=== PATIENT | female | born 1955 | race Caucasian/White ===

== ENCOUNTER 2016-05-18 20:29 | Emergency (ER) | payer OTHER ==
[~2016-05-18 20:29] MED LIST: /MOXI40TA OR; ACET65TA PO; ASPI81TA13 PO; ASPI81TA83 PO; BENA25TA4 PO; COUM10TA PO; COZA50TA PO; ECOT81TA2 PO; FLOM5CAP PO; GLUC1000 PO; GLUCTAB2 PO; HYDR25T PO; HYDR25TA8 PO; IBUP600T PO; KEFL500C PO; KEFL500C7 PO; LISI10TA4 PO; LOSA50TA20 PO; METF1000 PO; OMEP20CA3 PO; PRAV20TA2 PO; PRAV40TA PO; PRIL20CA PO; TAMS0.4C2 PO; TRENTAL PO; TYLE325T5 PO; TYLE650T30 PO; VITA500T53 PO
[2016-05-18] MEDS ORDERED: AZITHROMYCIN 250 MG TAB As Ordered ONE (22:24)
[2016-05-18] MEDS ORDERED: ALBUTEROL 90 MCG/ACT 8GM HFA INHALER As Ordered ONE (22:24)
[2016-05-18] MEDS ORDERED: predniSONE 20 MG TAB As Ordered ONE (22:24)
--- NOTE | 2016-05-18 22:31 | EDDOCDS ---
Nurse's Notes [facility] Name: Ciera Cody Age: 61 yrs Sex: Female : 1955 Arrival Date: 05/18/2016 Time: 20:29 Bed Triage 3 Private MD: Pretty Jain NP Diagnosis: Acute upper respiratory infections of multiple and unspecified sites;Acute bronchitis Presentation: 05/18 20:38 Presenting complaint: Patient states: Sick since Saturday--cough, runny nose, stuffy mcp nose, sore throat. Risk factors: Stridor is not present. Drooling is not present. Shortness of breath is not present. Cellulitis is not present. Adult Sepsis Screening: The patient does not have new or worsening altered mentation. Patient's respiratory rate is less than 22. Systolic blood pressure is greater than 100. Patient has a qSOFA score of 0- Negative Sepsis Screen. Suicide/Homicide risk assessment- the patient denies having any suicidal and/or homicidal ideations and does not present with any other emotional, behavioral or mental health complaints. Status: Patient is not a managed services sales consultant or dependent. Transition of care: patient was not received from another setting of care. 20:38 Acuity: GEOVANNA Level 3 [facility] 20:38 Method Of Arrival: Walkin/Carried/Asstd [facility] Triage Assessment: 20:42 General: Appears ill, Behavior is cooperative. Pain: Location: throat, back Pain mcp currently is 6 out of 10 on a pain scale. HIV screening NA for this visit Offered previously. Neurological: No deficits noted. EENT: Reports nasal congestion nasal discharge. Respiratory: Airway is patent Respiratory effort is even, unlabored, Reports cough that is persistent. Derm: Skin is pink, warm & dry. Historical: - Allergies: Naproxen; Ibuprofen; - Home Meds: 1. metformin 500 mg Oral tab 1 tab 2 times per day 2. magnesium oxide 500 mg Oral tab twice a day 3. aspirin 81 mg Oral tab 1 tab once daily 4. Calcium + Vitamin D 600 mg calcium- 200 unit Oral tab daily 5. losartan 50 mg oral tab 1 tab once daily 6. omeprazole 20 mg Oral cpDR 1 cap once daily 7. multivitamin Oral tab 1 tablet daily 8. Vitamin D Oral 50,000 unit every 2 weeks 9. atorvastatin 80 mg oral tab 1 tab once daily 10. cyclobenzaprine 5 mg Oral tab as needed - PMHx: Hypercholesterolemia; Hypertension; GERD; Diabetes - NIDDM: controlled; - PSHx: none; - Social history: Smoking status: Patient states was never smoker of tobacco. No barriers to communication noted, The patient speaks fluent Tajik. - Family history: Not pertinent. - : The pt / caregiver states he / she is not on anticoagulants. Home medication list is obtained from the patient. - Exposure Risk Screening:: None identified. Screenin:32 Infection Control. [facility] 22:29 Screening information is obtained from the patient. Fall risk: No risks identified. mcp Assistance ADL's: requires no assistance with activities of daily living. Abuse/DV Screen: The patient / caregiver reports he/she is: not in a situation that causes fear, pain or injury. Nutritional screening: No deficits noted. Advance Directives: There is no active DNR order. home support is adequate. Assessment: 22:29 General: Appears in no apparent distress, Behavior is cooperative. Pain: Location: head mcp and throat Pain currently is 6 out of 10 on a pain scale. Neurological: No deficits noted. Respiratory: Airway is patent Respiratory effort is even, unlabored, Reports cough that is non-productive, persistent. Derm: Skin is pink, warm & dry. 22:30 EENT: Throat is clear. [facility] Vital Signs: 20:31 BP 137 / 99; Pulse 99; Resp 18; Temp 98.0(O); Pulse Ox 100% ; Weight 101.15 kg; Height elp 5 ft. 2 in. (157.48 cm); Pain 5/10; 20:31 Body Mass Index 40.79 (101.15 kg, 157.48 cm) [facility] Vitals: 20:31 Log In Time: May 18, 2016 at 20:30. [facility] ED Course: 20:30 Patient visited by Halima Esparza PCA. elp 20:30 Pretty Jain is Private Physician. elp 20:30 Patient moved to Waiting elp 20:31 Patient visited by Halima Esparza PCA. elp 20:31 Patient moved to Pre RCE elp 20:39 Triage Initiated [facility] 20:43 Patient visited by Diane Levin RN. [facility] 21:47 Patient visited by Adriana Cohn PCA. jb 21:47 Patient moved to Triage 3 jb5 22:08 [facility] cc[facility] 22:08 Ravindra Frias DO is Attending Physician. cc10 22:08 Patient visited by Chip Holder PA-C. cc10 22:08 Patient visited by Chip Holder PA-C. cc10 22:15 Pretty Jain is Referral Physician. cc10 22:28 No IV's were initiated during this patient's visit. No procedures done that require mcp assistance. 22:29 The patient / caregiver is instructed regarding the plan of care and ED course. Patient mcp has correct armband on for positive identification. Bed in low position. Call light in reach. Administered Medications: 22:28 Drug: Ventolin 2 puffs [Ventolin HFA 90 mcg/actuation aerosol inhaler (2 puffs)] Route: mcp Inhalation; 22:28 Drug: predniSONE 20 mg [prednisone 20 mg tablet (1 tabs)] Route: PO; mcp 22:28 Drug: azithromycin 500 mg [azithromycin 250 mg tablet (2 tabs)] Route: PO; [facility] Order Results: There are currently no results for this order. Outcome: 22:15 Discharge ordered by Provider. cc10 22:30 Discharge Assessment: patient administered narcotics - no. The following High Risk mcp Discharge criteria are identified: None. Discharged to home ambulatory, with family. Condition: stable. Discharge instructions given to patient, Instructed on discharge instructions, follow up and referral plans. medication usage, Demonstrated understanding of instructions, medications, Pt was receptive of discharge instructions/ teaching. Prescriptions given X 3. No special radiology studies were completed. Property sent home with patient. 22:30 Patient left the ED. mcp Signatures: Diane Levin RN RN Adriana Casillas, WORT EXTRACTOR WORT EXTRACTOR jb5 Halima Esparza, WORT EXTRACTOR WORT EXTRACTOR elp Chip Hodler PA-C PA-C cc10 MTDD
--- NOTE | 2016-05-18 22:31 | EDDOCDS ---
Physician Documentation [facility] Name: Ciera Cody Age: 61 yrs Sex: Female : 1955 Arrival Date: 05/18/2016 Time: 20:29 Bed Triage 3 Private MD: Pretty Jain NP Disposition: 05/18/16 22:15 Discharged to Home/Self Care. Impression: Acute upper respiratory infections of multiple and unspecified sites, Acute bronchitis. - Condition is Stable. - Discharge Instructions: Acute Bronchitis, Upper Respiratory Infection, Adult. - Prescriptions for azithromycin 250 mg Oral tablet - take 1 tablet by ORAL route once daily for 4 days; 4 tablet. Prednisone 20 mg Oral Tablet - take 1 tablet by ORAL route once daily for 3 days; 3 tablet. benzonatate 200 mg Oral Capsule - take 1 capsule by ORAL route 3 times per day As needed; 30 capsule. - Medication Reconciliation, Local Pharmacy Hours form. - Follow up: Emergency Department; When: As needed. Follow up: Pretty Jain; When: Call to arrange an appointment; Reason: Wound/Symptom Recheck, Recheck today's complaints, Worsening of conditions, Continuance of care. - Problem is an ongoing problem. - Symptoms are unchanged. Historical: - Allergies: Naproxen; Ibuprofen; - Home Meds: 1. metformin 500 mg Oral tab 1 tab 2 times per day 2. magnesium oxide 500 mg Oral tab twice a day 3. aspirin 81 mg Oral tab 1 tab once daily 4. Calcium + Vitamin D 600 mg calcium- 200 unit Oral tab daily 5. losartan 50 mg oral tab 1 tab once daily 6. omeprazole 20 mg Oral cpDR 1 cap once daily 7. multivitamin Oral tab 1 tablet daily 8. Vitamin D Oral 50,000 unit every 2 weeks 9. atorvastatin 80 mg oral tab 1 tab once daily 10. cyclobenzaprine 5 mg Oral tab as needed - PMHx: Hypercholesterolemia; Hypertension; GERD; Diabetes - NIDDM: controlled; - PSHx: none; - Social history: Smoking status: Patient states was never smoker of tobacco. No barriers to communication noted, The patient speaks fluent Kittitian. - Family history: Not pertinent. - : The pt / caregiver states he / she is not on anticoagulants. Home medication list is obtained from the patient. - Exposure Risk Screening:: None identified. Vital Signs: 05/18 20:31 BP 137 / 99; Pulse 99; Resp 18; Temp 98.0(O); Pulse Ox 100% ; Weight 101.15 kg / 223 elp lbs; Height 5 ft. 2 in. (157.48 cm); Pain 5/10; 20:31 Body Mass Index 40.79 (101.15 kg, 157.48 cm) elp MDM: 22:14 MDI teaching with Spacer ordered. cc10 22:14 Ventolin Inhaler 2 puffs Inhalation once ordered. cc10 22:14 predniSONE 20 mg PO once; administer with food or milk ordered. cc10 22:14 azithromycin 500 mg PO once ordered. cc10 22:28 predniSONE 20 mg PO once; administer with food or milk ordered. mcp Administered Medications: 22:28 Drug: Ventolin 2 puffs [Ventolin HFA 90 mcg/actuation aerosol inhaler (2 puffs)] Route: mcp Inhalation; 22:28 Drug: predniSONE 20 mg [prednisone 20 mg tablet (1 tabs)] Route: PO; mcp 22:28 Drug: azithromycin 500 mg [azithromycin 250 mg tablet (2 tabs)] Route: PO; [facility] Signatures: Diane Levin, RN RN mcp Chip Holder PA-C PAGlenda cc10 MTDD
--- NOTE | 2016-05-22 10:04 | EDDOCDS ---
Physician Documentation [facility] Name: Ciera Cody Age: 61 yrs Sex: Female : 1955 Arrival Date: 05/18/2016 Time: 20:29 Bed Triage 3 Private MD: Pretty Jain NP Disposition: 05/18/16 22:15 Discharged to Home/Self Care. Impression: Acute upper respiratory infections of multiple and unspecified sites, Acute bronchitis. - Condition is Stable. - Discharge Instructions: Acute Bronchitis, Upper Respiratory Infection, Adult. - Prescriptions for azithromycin 250 mg Oral tablet - take 1 tablet by ORAL route once daily for 4 days; 4 tablet. Prednisone 20 mg Oral Tablet - take 1 tablet by ORAL route once daily for 3 days; 3 tablet. benzonatate 200 mg Oral Capsule - take 1 capsule by ORAL route 3 times per day As needed; 30 capsule. - Medication Reconciliation, Local Pharmacy Hours form. - Follow up: Emergency Department; When: As needed. Follow up: Pretty Jain; When: Call to arrange an appointment; Reason: Wound/Symptom Recheck, Recheck today's complaints, Worsening of conditions, Continuance of care. - Problem is an ongoing problem. - Symptoms are unchanged. Historical: - Allergies: Naproxen; Ibuprofen; - Home Meds: 1. metformin 500 mg Oral tab 1 tab 2 times per day 2. magnesium oxide 500 mg Oral tab twice a day 3. aspirin 81 mg Oral tab 1 tab once daily 4. Calcium + Vitamin D 600 mg calcium- 200 unit Oral tab daily 5. losartan 50 mg oral tab 1 tab once daily 6. omeprazole 20 mg Oral cpDR 1 cap once daily 7. multivitamin Oral tab 1 tablet daily 8. Vitamin D Oral 50,000 unit every 2 weeks 9. atorvastatin 80 mg oral tab 1 tab once daily 10. cyclobenzaprine 5 mg Oral tab as needed - PMHx: Hypercholesterolemia; Hypertension; GERD; Diabetes - NIDDM: controlled; - PSHx: none; - Social history: Smoking status: Patient states was never smoker of tobacco. No barriers to communication noted, The patient speaks fluent Luxembourger. - Family history: Not pertinent. - : The pt / caregiver states he / she is not on anticoagulants. Home medication list is obtained from the patient. - Exposure Risk Screening:: None identified. Vital Signs: 05/18 20:31 BP 137 / 99; Pulse 99; Resp 18; Temp 98.0(O); Pulse Ox 100% ; Weight 101.15 kg / 223 elp lbs; Height 5 ft. 2 in. (157.48 cm); Pain 5/10; 20:31 Body Mass Index 40.79 (101.15 kg, 157.48 cm) elp MDM: 22:14 MDI teaching with Spacer ordered. cc10 22:14 Ventolin Inhaler 2 puffs Inhalation once ordered. cc10 22:14 predniSONE 20 mg PO once; administer with food or milk ordered. cc10 22:14 azithromycin 500 mg PO once ordered. cc10 22:28 predniSONE 20 mg PO once; administer with food or milk ordered. [facility] :38 [facility] Payment Agreement was scanned into [employer] and attached to record. [facility] : Financial registration complete. 5 05/19 08:15 T-Sheet-- Draft Copy was scanned into [employer] and attached to record. se Administered Medications: 05/18 22:28 Drug: Ventolin 2 puffs [Ventolin HFA 90 mcg/actuation aerosol inhaler (2 puffs)] Route: mcp Inhalation; 22:28 Drug: predniSONE 20 mg [prednisone 20 mg tablet (1 tabs)] Route: PO; [facility] 22:28 Drug: azithromycin 500 mg [azithromycin 250 mg tablet (2 tabs)] Route: PO; [facility] Signatures: Diane Levin, RN RN [facility] Chip Holder, ARABELLAC PABina Galvan Alida Frey The chart was reviewed and I authenticate all verbal orders and agree with the evaluation and treatment provided.Attachments: :38 [facility] Payment Agreement jp5 05/19 08:15 T-Sheet-- Draft Copy [facility] Chart Complete MTDD
--- NOTE | 2016-05-22 10:04 | EDDOCDS ---
Physician Documentation [facility] Name: Ciera Cody Age: 61 yrs Sex: Female : 1955 Arrival Date: 05/18/2016 Time: 20:29 Bed Triage 3 Private MD: Pretty Jain NP Disposition: 05/18/16 22:15 Discharged to Home/Self Care. Impression: Acute upper respiratory infections of multiple and unspecified sites, Acute bronchitis. - Condition is Stable. - Discharge Instructions: Acute Bronchitis, Upper Respiratory Infection, Adult. - Prescriptions for azithromycin 250 mg Oral tablet - take 1 tablet by ORAL route once daily for 4 days; 4 tablet. Prednisone 20 mg Oral Tablet - take 1 tablet by ORAL route once daily for 3 days; 3 tablet. benzonatate 200 mg Oral Capsule - take 1 capsule by ORAL route 3 times per day As needed; 30 capsule. - Medication Reconciliation, Local Pharmacy Hours form. - Follow up: Emergency Department; When: As needed. Follow up: Pretty Jain; When: Call to arrange an appointment; Reason: Wound/Symptom Recheck, Recheck today's complaints, Worsening of conditions, Continuance of care. - Problem is an ongoing problem. - Symptoms are unchanged. Historical: - Allergies: Naproxen; Ibuprofen; - Home Meds: 1. metformin 500 mg Oral tab 1 tab 2 times per day 2. magnesium oxide 500 mg Oral tab twice a day 3. aspirin 81 mg Oral tab 1 tab once daily 4. Calcium + Vitamin D 600 mg calcium- 200 unit Oral tab daily 5. losartan 50 mg oral tab 1 tab once daily 6. omeprazole 20 mg Oral cpDR 1 cap once daily 7. multivitamin Oral tab 1 tablet daily 8. Vitamin D Oral 50,000 unit every 2 weeks 9. atorvastatin 80 mg oral tab 1 tab once daily 10. cyclobenzaprine 5 mg Oral tab as needed - PMHx: Hypercholesterolemia; Hypertension; GERD; Diabetes - NIDDM: controlled; - PSHx: none; - Social history: Smoking status: Patient states was never smoker of tobacco. No barriers to communication noted, The patient speaks fluent Stateless. - Family history: Not pertinent. - : The pt / caregiver states he / she is not on anticoagulants. Home medication list is obtained from the patient. - Exposure Risk Screening:: None identified. Vital Signs: 05/18 20:31 BP 137 / 99; Pulse 99; Resp 18; Temp 98.0(O); Pulse Ox 100% ; Weight 101.15 kg / 223 elp lbs; Height 5 ft. 2 in. (157.48 cm); Pain 5/10; 20:31 Body Mass Index 40.79 (101.15 kg, 157.48 cm) elp MDM: 22:14 MDI teaching with Spacer ordered. cc10 22:14 Ventolin Inhaler 2 puffs Inhalation once ordered. cc10 22:14 predniSONE 20 mg PO once; administer with food or milk ordered. cc10 22:14 azithromycin 500 mg PO once ordered. cc10 22:28 predniSONE 20 mg PO once; administer with food or milk ordered. [facility] :38 [facility] Payment Agreement was scanned into [employer] and attached to record. [facility] : Financial registration complete. 5 05/19 08:15 T-Sheet-- Draft Copy was scanned into [employer] and attached to record. se Administered Medications: 05/18 22:28 Drug: Ventolin 2 puffs [Ventolin HFA 90 mcg/actuation aerosol inhaler (2 puffs)] Route: mcp Inhalation; 22:28 Drug: predniSONE 20 mg [prednisone 20 mg tablet (1 tabs)] Route: PO; [facility] 22:28 Drug: azithromycin 500 mg [azithromycin 250 mg tablet (2 tabs)] Route: PO; [facility] Signatures: Diane Levin, RN RN [facility] Chip Holder, ARABELLAC PABina Galvan Alida Frey The chart was reviewed and I authenticate all verbal orders and agree with the evaluation and treatment provided.Attachments: :38 [facility] Payment Agreement jp5 05/19 08:15 T-Sheet-- Draft Copy [facility] Chart Complete MTDD
--- NOTE | 2016-05-22 10:04 | EDDOCDS ---
Nurse's Notes [facility] Name: Ciera Cody Age: 61 yrs Sex: Female : 1955 Arrival Date: 05/18/2016 Time: 20:29 Bed Triage 3 Private MD: Pretty Jain NP Diagnosis: Acute upper respiratory infections of multiple and unspecified sites;Acute bronchitis Presentation: 05/18 20:38 Presenting complaint: Patient states: Sick since Saturday--cough, runny nose, stuffy mcp nose, sore throat. Risk factors: Stridor is not present. Drooling is not present. Shortness of breath is not present. Cellulitis is not present. Adult Sepsis Screening: The patient does not have new or worsening altered mentation. Patient's respiratory rate is less than 22. Systolic blood pressure is greater than 100. Patient has a qSOFA score of 0- Negative Sepsis Screen. Suicide/Homicide risk assessment- the patient denies having any suicidal and/or homicidal ideations and does not present with any other emotional, behavioral or mental health complaints. Status: Patient is not a real estate services administrator or dependent. Transition of care: patient was not received from another setting of care. 20:38 Acuity: GEOVANNA Level 3 [facility] 20:38 Method Of Arrival: Walkin/Carried/Asstd [facility] Triage Assessment: 20:42 General: Appears ill, Behavior is cooperative. Pain: Location: throat, back Pain mcp currently is 6 out of 10 on a pain scale. HIV screening NA for this visit Offered previously. Neurological: No deficits noted. EENT: Reports nasal congestion nasal discharge. Respiratory: Airway is patent Respiratory effort is even, unlabored, Reports cough that is persistent. Derm: Skin is pink, warm & dry. Historical: - Allergies: Naproxen; Ibuprofen; - Home Meds: 1. metformin 500 mg Oral tab 1 tab 2 times per day 2. magnesium oxide 500 mg Oral tab twice a day 3. aspirin 81 mg Oral tab 1 tab once daily 4. Calcium + Vitamin D 600 mg calcium- 200 unit Oral tab daily 5. losartan 50 mg oral tab 1 tab once daily 6. omeprazole 20 mg Oral cpDR 1 cap once daily 7. multivitamin Oral tab 1 tablet daily 8. Vitamin D Oral 50,000 unit every 2 weeks 9. atorvastatin 80 mg oral tab 1 tab once daily 10. cyclobenzaprine 5 mg Oral tab as needed - PMHx: Hypercholesterolemia; Hypertension; GERD; Diabetes - NIDDM: controlled; - PSHx: none; - Social history: Smoking status: Patient states was never smoker of tobacco. No barriers to communication noted, The patient speaks fluent Arabic. - Family history: Not pertinent. - : The pt / caregiver states he / she is not on anticoagulants. Home medication list is obtained from the patient. - Exposure Risk Screening:: None identified. Screenin:32 Infection Control. [facility] 22:29 Screening information is obtained from the patient. Fall risk: No risks identified. mcp Assistance ADL's: requires no assistance with activities of daily living. Abuse/DV Screen: The patient / caregiver reports he/she is: not in a situation that causes fear, pain or injury. Nutritional screening: No deficits noted. Advance Directives: There is no active DNR order. home support is adequate. Assessment: 22:29 General: Appears in no apparent distress, Behavior is cooperative. Pain: Location: head mcp and throat Pain currently is 6 out of 10 on a pain scale. Neurological: No deficits noted. Respiratory: Airway is patent Respiratory effort is even, unlabored, Reports cough that is non-productive, persistent. Derm: Skin is pink, warm & dry. 22:30 EENT: Throat is clear. [facility] Vital Signs: 20:31 BP 137 / 99; Pulse 99; Resp 18; Temp 98.0(O); Pulse Ox 100% ; Weight 101.15 kg; Height elp 5 ft. 2 in. (157.48 cm); Pain 5/10; 20:31 Body Mass Index 40.79 (101.15 kg, 157.48 cm) [facility] Vitals: 20:31 Log In Time: May 18, 2016 at 20:30. [facility] ED Course: 20:30 Patient visited by Halima Esparza PCA. elp 20:30 Pretty Jain is Private Physician. elp 20:30 Patient moved to Waiting elp 20:31 Patient visited by Halima Esparza PCA. elp 20:31 Patient moved to Pre RCE elp 20:39 Triage Initiated [facility] 20:43 Patient visited by Diane Levin RN. [facility] 21:47 Patient visited by Adriana Cohn PCA. jb 21:47 Patient moved to Triage 3 jb5 22:08 [facility] cc[facility] 22:08 Ravindra Frias DO is Attending Physician. cc10 22:08 Patient visited by Chip Holder PA-C. cc10 22:08 Patient visited by Chip Holder PA-C. cc10 22:15 Pretty Jain is Referral Physician. cc10 22:28 No IV's were initiated during this patient's visit. No procedures done that require mcp assistance. 22:29 The patient / caregiver is instructed regarding the plan of care and ED course. Patient mcp has correct armband on for positive identification. Bed in low position. Call light in reach. 22:38 [facility] Payment Agreement was scanned into [employer] and attached to record. jp5 05/19 08:15 T-Sheet-- Draft Copy was scanned into [employer] and attached to record. se Administered Medications: 05/18 22:28 Drug: Ventolin 2 puffs [Ventolin HFA 90 mcg/actuation aerosol inhaler (2 puffs)] Route: mcp Inhalation; 22:28 Drug: predniSONE 20 mg [prednisone 20 mg tablet (1 tabs)] Route: PO; mcp 22:28 Drug: azithromycin 500 mg [azithromycin 250 mg tablet (2 tabs)] Route: PO; [facility] Order Results: There are currently no results for this order. Outcome: 22:15 Discharge ordered by Provider. cc10 22:30 Discharge Assessment: patient administered narcotics - no. The following High Risk [facility] Discharge criteria are identified: None. Discharged to home ambulatory, with family. Condition: stable. Discharge instructions given to patient, Instructed on discharge instructions, follow up and referral plans. medication usage, Demonstrated understanding of instructions, medications, Pt was receptive of discharge instructions/ teaching. Prescriptions given X 3. No special radiology studies were completed. Property sent home with patient. 22:30 Patient left the ED. [facility] Signatures: Diane Levin RN RN Adriana Casillas, PETROLEUM ENGINEER PETROLEUM ENGINEER jb5 Halima Esparza, PETROLEUM ENGINEER PETROLEUM ENGINEER elp Chip Holder PA-C PA-C cc10 Bina Ward jp5 Alida Mehta se Chart Complete MTDD
== END 2016-05-18 22:30 | disposition home or self-care (01) ==
LOC: M ED 20:29
DX: J20.9 Acute bronchitis, unspecified (principal); J06.9 Acute upper respiratory infection, unspecified; E78.00 Pure hypercholesterolemia, unspecified; I10 Essential (primary) hypertension; K21.9 Gastro-esophageal reflux disease without esophagitis; E11.9 Type 2 diabetes mellitus without complications; Z79.82 Long term (current) use of aspirin; Z79.84 Long term (current) use of oral hypoglycemic drugs; Z79.899 Other long term (current) drug therapy; Z88.6 Allergy status to analgesic agent

== ENCOUNTER 2016-06-02 22:10 | Emergency (ER) | payer OTHER ==
[~2016-06-02 22:10] MED LIST changes: -ECOT81TA2 PO; +ECOT81TA5 PO; +PRIL20CA9 PO
[2016-06-03] MEDS ORDERED: BENZONATATE 100 MG CAP As Ordered ONE (00:33)
--- NOTE | 2016-06-03 01:20 | EDDOCDS ---
Nurse's Notes [facility] Name: Ciera Cody Age: 61 yrs Sex: Female : 1955 Arrival Date: 06/02/2016 Time: 22:10 Bed TR6 Private MD: Pretty Jain NP Diagnosis: Acute bronchitis;Cough Presentation: 06/02 22:26 Presenting complaint: Patient states: Was seen here 2 weeks ago and was diagnosed with kmg1 URI and acute bronchitis. Still feels fullness in in chest and cough persists. Adult Sepsis Screening: The patient does not have new or worsening altered mentation. Patient's respiratory rate is less than 22. Systolic blood pressure is greater than 100. Patient has a qSOFA score of 0- Negative Sepsis Screen. Suicide/Homicide risk assessment- the patient denies having any suicidal and/or homicidal ideations and does not present with any other emotional, behavioral or mental health complaints. 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 Transition of care: patient was not received from another setting of care. 22:26 Acuity: GEOVANNA Level 4 km 22:26 Method Of Arrival: Walkin/Carried/Asstd km Triage Assessment: 22:31 General: Appears in no apparent distress, comfortable, Behavior is appropriate for age, kmg1 cooperative, pleasant. Pain: Denies pain. HIV screening NA for this visit Offered previously. Respiratory: Airway is patent Respiratory effort is even, unlabored, Respiratory pattern is regular, symmetrical, Reports shortness of breath cough that is. Historical: - Allergies: Ibuprofen; Naproxen; - Home Meds: 1. aspirin 81 mg Oral tab 1 tab once daily 2. atorvastatin 80 mg oral tab 1 tab once daily 3. Calcium + Vitamin D 600 mg calcium- 200 unit Oral tab daily 4. cyclobenzaprine 5 mg Oral tab as needed 5. losartan 50 mg oral tab 1 tab once daily 6. magnesium oxide 500 mg Oral tab twice a day 7. metformin 500 mg Oral tab 1 tab 2 times per day 8. multivitamin Oral tab 1 tab daily 9. omeprazole 20 mg Oral cpDR 1 cap once daily 10. Vitamin D Oral 88313 unit every 2 weeks 11. Tussionex Pennkinetic ER oral su12 12. TussiCaps 10-8 mg oral cp12 1 cap every 12 hours 13. albuterol sulfate 90 mcg/actuation Inhl HFAA 2 puffs every 4-6 hours - PMHx: Diabetes - NIDDM: controlled; GERD; Hypercholesterolemia; Hypertension; - PSHx: none; - Social history: Smoking status: Patient states was never smoker of tobacco. No barriers to communication noted, The patient speaks fluent Spanish, Speaks appropriately for age. - Family history: Not pertinent. - : The pt / caregiver states he / she is not on anticoagulants. Home medication list is obtained from the patient. - Exposure Risk Screening:: None identified. Screenin/22 01:18 Screening information is obtained from the patient. Fall risk: No risks identified. cz Assistance ADL's: requires no assistance with activities of daily living. Abuse/DV Screen: The patient / caregiver reports he/she is:. Nutritional screening: No deficits noted. home support is adequate. Assessment: 01:18 Reassessment: alert female with productive cough intermittently. cz Vital Signs: 06/02 22:11 BP 152 / 90; Pulse 95; Resp 18 S; Temp 99.1(O); Pulse Ox 97% on R/A; Weight 106.59 kg gr2 (R); Height 5 ft. 2 in. (157.48 cm) (R); Pain 2/10; 22:11 Body Mass Index 42.98 (106.59 kg, 157.48 cm) 2 Vitals: 22:11 Log In Time: June 02, 2016 at 22:11. 2 ED Course: 22:11 Patient visited by Shreyas Hernandez. gr2 22:11 Pretty aJin is Private Physician. gr2 22:11 Patient moved to Waiting gr2 22:13 Patient visited by Shreyas Hernandez. gr2 22:13 Patient moved to Pre RCE gr2 22:28 Triage Initiated kmg1 22:32 Patient visited by Margo River RN. kmg1 23:32 Patient moved to Triage 1 km 06/03 00:04 Donaldo Martinez PA is PHCP. mo1 00:04 Michael Jeronimo DO is Attending Physician. mo1 00:12 Patient visited by Donaldo Martinez PA. mo1 00:16 Pretty Jain is Referral Physician. mo1 00:39 Patient moved to [facility] cz 01:18 The patient / caregiver is instructed regarding the plan of care and ED course. cz 01:18 No IV's were initiated during this patient's visit. No procedures done that require cz assistance. 01:19 [facility] Payment Agreement was scanned into [employer] and attached to record. [facility] Administered Medications: 00:39 Drug: Tessalon 200 mg Route: PO; cz Order Results: There are currently no results for this order. Outcome: 00:16 Discharge ordered by Provider. mo1 01:18 Discharge Assessment: Patient awake, alert and oriented x 3. No cognitive and/or cz functional deficits noted. Patient verbalized understanding of disposition instructions. patient administered narcotics - no. The following High Risk Discharge criteria are identified: None. Discharged to home ambulatory, with friend. Condition: stable. Discharge instructions given to patient, Instructed on discharge instructions, follow up and referral plans. medication usage, Demonstrated understanding of instructions, medications, Pt was receptive of discharge instructions/ teaching. Prescriptions given X 2. No special radiology studies were completed. Property :Personal belongings accompany Pt. 01:19 Patient left the ED. cz Signatures: Margo River RN RN km Harry Gonzalez RN RN cz Shreyas Hernandez gr2 Donaldo Martinez PA PA mo1 Shonda Heath [facility] [place]
--- NOTE | 2016-06-03 01:20 | EDDOCDS ---
Physician Documentation [facility] Name: Ciera Cody Age: 61 yrs Sex: Female : 1955 Arrival Date: 06/02/2016 Time: 22:10 Bed TR6 Private MD: Pretty Jain NP Disposition: 06/03/16 00:16 Discharged to Home/Self Care. Impression: Acute bronchitis, Cough. - Condition is Stable. - Discharge Instructions: Acute Bronchitis, Cough, Adult. - Prescriptions for benzonatate 200 mg Oral Capsule - take 1 capsule by ORAL route 3 times per day As needed; 30 capsule. Albuterol Sulfate 90 mcg/actuation Inhalation HFA Aerosol Inhaler - inhale 2 puff by INHALATION route every 4 hours As needed; 1 Inhaler. - Medication Reconciliation, Local Pharmacy Hours form. - Follow up: Pretty Jain; When: Call to arrange an appointment; Reason: Recheck today's complaints, Continuance of care. - Problem is an ongoing problem. - Symptoms are unchanged. Historical: - Allergies: Ibuprofen; Naproxen; - Home Meds: 1. aspirin 81 mg Oral tab 1 tab once daily 2. atorvastatin 80 mg oral tab 1 tab once daily 3. Calcium + Vitamin D 600 mg calcium- 200 unit Oral tab daily 4. cyclobenzaprine 5 mg Oral tab as needed 5. losartan 50 mg oral tab 1 tab once daily 6. magnesium oxide 500 mg Oral tab twice a day 7. metformin 500 mg Oral tab 1 tab 2 times per day 8. multivitamin Oral tab 1 tab daily 9. omeprazole 20 mg Oral cpDR 1 cap once daily 10. Vitamin D Oral 28055 unit every 2 weeks 11. Tussionex Pennkinetic ER oral su12 12. TussiCaps 10-8 mg oral cp12 1 cap every 12 hours 13. albuterol sulfate 90 mcg/actuation Inhl HFAA 2 puffs every 4-6 hours - PMHx: Diabetes - NIDDM: controlled; GERD; Hypercholesterolemia; Hypertension; - PSHx: none; - Social history: Smoking status: Patient states was never smoker of tobacco. No barriers to communication noted, The patient speaks fluent Nigerian, Speaks appropriately for age. - Family history: Not pertinent. - : The pt / caregiver states he / she is not on anticoagulants. Home medication list is obtained from the patient. - Exposure Risk Screening:: None identified. Vital Signs: 06/02 22:11 BP 152 / 90; Pulse 95; Resp 18 S; Temp 99.1(O); Pulse Ox 97% on R/A; Weight 106.59 kg / gr2 234.99 lbs (R); Height 5 ft. 2 in. (157.48 cm) (R); Pain 2/10; 22:11 Body Mass Index 42.98 (106.59 kg, 157.48 cm) gr2 MDM: 22:35 Chest, 2 View (pa\E\lat) Ordered. EDMS 06/03 00:13 Tessalon 200 mg PO once ordered. mo1 00:40 Financial registration complete. [facility] [address] : [facility] Payment Agreement was scanned into [employer] and attached to record. [facility] [address] Administered Medications: 00:39 Drug: Tessalon 200 mg Route: PO; cz Signatures: Dispatcher [employer] [facility] Margo River RN RN kmg1 Harry Gonzalez RN RN cz Donaldo Martinez PA PA mo1 Shonda Heath [facility] [address] The chart was reviewed and I authenticate all verbal orders and agree with the evaluation and treatment provided.Attachments: 01:19 [facility] Payment Agreement [facility] [address] MTDD
--- NOTE | 2016-06-03 08:52 | REP ---
PA and lateral chest 06/02/2016 Indication: Cough Comparison: PA and lateral chest 11/14/14 Findings: Cardiomediastinal silhouette is normal. Lungs are clear bilaterally. There are mild degenerative changes in thoracic spine. Small amount of calcification is seen in the region of the left greater tuberosity of humerus most compatible with calcific tendonitis within the distal supraspinatus tendon. Impression: no acute cardiopulmonary process Signed by Natasha Ramirez MD 06/03/2016 08:43 A
--- NOTE | 2016-06-05 02:20 | EDDOCDS ---
Physician Documentation [facility] Name: Ciera Cody Age: 61 yrs Sex: Female : 1955 Arrival Date: 06/02/2016 Time: 22:10 Bed TR6 Private MD: Pretty Jain NP Disposition: 06/03/16 00:16 Discharged to Home/Self Care. Impression: Acute bronchitis, Cough. - Condition is Stable. - Discharge Instructions: Acute Bronchitis, Cough, Adult. - Prescriptions for benzonatate 200 mg Oral Capsule - take 1 capsule by ORAL route 3 times per day As needed; 30 capsule. Albuterol Sulfate 90 mcg/actuation Inhalation HFA Aerosol Inhaler - inhale 2 puff by INHALATION route every 4 hours As needed; 1 Inhaler. - Medication Reconciliation, Local Pharmacy Hours form. - Follow up: Pertty Jain; When: Call to arrange an appointment; Reason: Recheck today's complaints, Continuance of care. - Problem is an ongoing problem. - Symptoms are unchanged. Historical: - Allergies: Ibuprofen; Naproxen; - Home Meds: 1. aspirin 81 mg Oral tab 1 tab once daily 2. atorvastatin 80 mg oral tab 1 tab once daily 3. Calcium + Vitamin D 600 mg calcium- 200 unit Oral tab daily 4. cyclobenzaprine 5 mg Oral tab as needed 5. losartan 50 mg oral tab 1 tab once daily 6. magnesium oxide 500 mg Oral tab twice a day 7. metformin 500 mg Oral tab 1 tab 2 times per day 8. multivitamin Oral tab 1 tab daily 9. omeprazole 20 mg Oral cpDR 1 cap once daily 10. Vitamin D Oral 87622 unit every 2 weeks 11. Tussionex Pennkinetic ER oral su12 12. TussiCaps 10-8 mg oral cp12 1 cap every 12 hours 13. albuterol sulfate 90 mcg/actuation Inhl HFAA 2 puffs every 4-6 hours - PMHx: Diabetes - NIDDM: controlled; GERD; Hypercholesterolemia; Hypertension; - PSHx: none; - Social history: Smoking status: Patient states was never smoker of tobacco. No barriers to communication noted, The patient speaks fluent [place], Speaks appropriately for age. - Family history: Not pertinent. - : The pt / caregiver states he / she is not on anticoagulants. Home medication list is obtained from the patient. - Exposure Risk Screening:: None identified. Vital Signs: 06/02 22:11 BP 152 / 90; Pulse 95; Resp 18 S; Temp 99.1(O); Pulse Ox 97% on R/A; Weight 106.59 kg / gr2 234.99 lbs (R); Height 5 ft. 2 in. (157.48 cm) (R); Pain 2/10; 22:11 Body Mass Index 42.98 (106.59 kg, 157.48 cm) gr2 MDM: 22:35 Chest, 2 View (pa\E\lat) Ordered. EDMS 06/03 00:13 Tessalon 200 mg PO once ordered. mo1 00:40 Financial registration complete. [facility] : [facility] Payment Agreement was scanned into [employer] and attached to record. [facility] 14:15 T-Sheet-- Draft Copy was scanned into [employer] and attached to record. kf3 Administered Medications: 00:39 Drug: Tessalon 200 mg Route: PO; cz Signatures: Dispatcher [employer] EDND Margo River RN RN kmg1 Harry Gonzalez RN RN cz Zay Woods, Reg Reg kf3 Donaldo Martinez PA PA kenia Shonda Heath [facility] The chart was reviewed and I authenticate all verbal orders and agree with the evaluation and treatment provided.Attachments: 01: [facility] Payment Agreement [facility] 14:15 T-Sheet-- Draft Copy kf3 Chart Complete MTDD
--- NOTE | 2016-06-05 02:20 | EDDOCDS ---
Physician Documentation [facility] Name: Ciera Cody Age: 61 yrs Sex: Female : 1955 Arrival Date: 06/02/2016 Time: 22:10 Bed TR6 Private MD: Pretty Jain NP Disposition: 06/03/16 00:16 Discharged to Home/Self Care. Impression: Acute bronchitis, Cough. - Condition is Stable. - Discharge Instructions: Acute Bronchitis, Cough, Adult. - Prescriptions for benzonatate 200 mg Oral Capsule - take 1 capsule by ORAL route 3 times per day As needed; 30 capsule. Albuterol Sulfate 90 mcg/actuation Inhalation HFA Aerosol Inhaler - inhale 2 puff by INHALATION route every 4 hours As needed; 1 Inhaler. - Medication Reconciliation, Local Pharmacy Hours form. - Follow up: Pretty Jain; When: Call to arrange an appointment; Reason: Recheck today's complaints, Continuance of care. - Problem is an ongoing problem. - Symptoms are unchanged. Historical: - Allergies: Ibuprofen; Naproxen; - Home Meds: 1. aspirin 81 mg Oral tab 1 tab once daily 2. atorvastatin 80 mg oral tab 1 tab once daily 3. Calcium + Vitamin D 600 mg calcium- 200 unit Oral tab daily 4. cyclobenzaprine 5 mg Oral tab as needed 5. losartan 50 mg oral tab 1 tab once daily 6. magnesium oxide 500 mg Oral tab twice a day 7. metformin 500 mg Oral tab 1 tab 2 times per day 8. multivitamin Oral tab 1 tab daily 9. omeprazole 20 mg Oral cpDR 1 cap once daily 10. Vitamin D Oral 74299 unit every 2 weeks 11. Tussionex Pennkinetic ER oral su12 12. TussiCaps 10-8 mg oral cp12 1 cap every 12 hours 13. albuterol sulfate 90 mcg/actuation Inhl HFAA 2 puffs every 4-6 hours - PMHx: Diabetes - NIDDM: controlled; GERD; Hypercholesterolemia; Hypertension; - PSHx: none; - Social history: Smoking status: Patient states was never smoker of tobacco. No barriers to communication noted, The patient speaks fluent Burmese, Speaks appropriately for age. - Family history: Not pertinent. - : The pt / caregiver states he / she is not on anticoagulants. Home medication list is obtained from the patient. - Exposure Risk Screening:: None identified. Vital Signs: 06/02 22:11 BP 152 / 90; Pulse 95; Resp 18 S; Temp 99.1(O); Pulse Ox 97% on R/A; Weight 106.59 kg / gr2 234.99 lbs (R); Height 5 ft. 2 in. (157.48 cm) (R); Pain 2/10; 22:11 Body Mass Index 42.98 (106.59 kg, 157.48 cm) gr2 MDM: 22:35 Chest, 2 View (pa\E\lat) Ordered. EDMS 06/03 00:13 Tessalon 200 mg PO once ordered. mo1 00:40 Financial registration complete. [facility] : [facility] Payment Agreement was scanned into [employer] and attached to record. [facility] 14:15 T-Sheet-- Draft Copy was scanned into [employer] and attached to record. kf3 Administered Medications: 00:39 Drug: Tessalon 200 mg Route: PO; cz Signatures: Dispatcher [employer] EDFL Margo River RN RN kmg1 Harry Gonzalez RN RN cz Zay Woods, Reg Reg kf3 Donaldo Martinez PA PA kenia Shonda Heath [facility] The chart was reviewed and I authenticate all verbal orders and agree with the evaluation and treatment provided.Attachments: 01: [facility] Payment Agreement [facility] 14:15 T-Sheet-- Draft Copy kf3 Chart Complete MTDD
--- NOTE | 2016-06-05 02:20 | EDDOCDS ---
Nurse's Notes [facility] Name: Ciera Cody Age: 61 yrs Sex: Female : 1955 Arrival Date: 06/02/2016 Time: 22:10 Bed TR6 Private MD: Pretty Jain NP Diagnosis: Acute bronchitis;Cough Presentation: 06/02 22:26 Presenting complaint: Patient states: Was seen here 2 weeks ago and was diagnosed with kmg1 URI and acute bronchitis. Still feels fullness in in chest and cough persists. Adult Sepsis Screening: The patient does not have new or worsening altered mentation. Patient's respiratory rate is less than 22. Systolic blood pressure is greater than 100. Patient has a qSOFA score of 0- Negative Sepsis Screen. Suicide/Homicide risk assessment- the patient denies having any suicidal and/or homicidal ideations and does not present with any other emotional, behavioral or mental health complaints. 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 Transition of care: patient was not received from another setting of care. 22:26 Acuity: GEOVANNA Level 4 km 22:26 Method Of Arrival: Walkin/Carried/Asstd km Triage Assessment: 22:31 General: Appears in no apparent distress, comfortable, Behavior is appropriate for age, kmg1 cooperative, pleasant. Pain: Denies pain. HIV screening NA for this visit Offered previously. Respiratory: Airway is patent Respiratory effort is even, unlabored, Respiratory pattern is regular, symmetrical, Reports shortness of breath cough that is. Historical: - Allergies: Ibuprofen; Naproxen; - Home Meds: 1. aspirin 81 mg Oral tab 1 tab once daily 2. atorvastatin 80 mg oral tab 1 tab once daily 3. Calcium + Vitamin D 600 mg calcium- 200 unit Oral tab daily 4. cyclobenzaprine 5 mg Oral tab as needed 5. losartan 50 mg oral tab 1 tab once daily 6. magnesium oxide 500 mg Oral tab twice a day 7. metformin 500 mg Oral tab 1 tab 2 times per day 8. multivitamin Oral tab 1 tab daily 9. omeprazole 20 mg Oral cpDR 1 cap once daily 10. Vitamin [place] Oral [address] unit every 2 weeks 11. Tussionex Pennkinetic ER oral su12 12. TussiCaps 10-8 mg oral cp12 1 cap every 12 hours 13. albuterol sulfate 90 mcg/actuation Inhl HFAA 2 puffs every 4-6 hours - PMHx: Diabetes - NIDDM: controlled; GERD; Hypercholesterolemia; Hypertension; - PSHx: none; - Social history: Smoking status: Patient states was never smoker of tobacco. No barriers to communication noted, The patient speaks fluent French, Speaks appropriately for age. - Family history: Not pertinent. - : The pt / caregiver states he / she is not on anticoagulants. Home medication list is obtained from the patient. - Exposure Risk Screening:: None identified. Screenin/22 01:18 Screening information is obtained from the patient. Fall risk: No risks identified. cz Assistance ADL's: requires no assistance with activities of daily living. Abuse/DV Screen: The patient / caregiver reports he/she is:. Nutritional screening: No deficits noted. home support is adequate. Assessment: 01:18 Reassessment: alert female with productive cough intermittently. cz Vital Signs: 06/02 22:11 BP 152 / 90; Pulse 95; Resp 18 S; Temp 99.1(O); Pulse Ox 97% on R/A; Weight 106.59 kg gr2 (R); Height 5 ft. 2 in. (157.48 cm) (R); Pain 2/10; 22:11 Body Mass Index 42.98 (106.59 kg, 157.48 cm) 2 Vitals: 22:11 Log In Time: June 02, 2016 at 22:11. 2 ED Course: 22:11 Patient visited by Shreyas Hernandez. gr2 22:11 Pretty Jain is Private Physician. gr2 22:11 Patient moved to Waiting gr2 22:13 Patient visited by Shreyas Hernandez. gr2 22:13 Patient moved to Pre RCE gr2 22:28 Triage Initiated kmg1 22:32 Patient visited by Margo River RN. kmg1 23:32 Patient moved to Triage 1 km 06/03 00:04 Donaldo Martinez PA is PHCP. mo1 00:04 Michael Jeronimo DO is Attending Physician. mo1 00:12 Patient visited by Donaldo Martinez PA. mo1 00:16 Pretty Jain is Referral Physician. mo1 00:39 Patient moved to [facility] cz 01:18 The patient / caregiver is instructed regarding the plan of care and ED course. cz 01:18 No IV's were initiated during this patient's visit. No procedures done that require cz assistance. 01:19 [facility] Payment Agreement was scanned into [employer] and attached to record. [facility] 09:13 Chest, 2 View (pa\E\lat) Returned. [facility] 14:15 T-Sheet-- Draft Copy was scanned into [employer] and attached to record. kf3 Administered Medications: 00:39 Drug: Tessalon 200 mg Route: PO; cz Order Results: Radiology Order: Chest, 2 View (pa\E\lat) Test: Chest, 2 View (pa\E\lat) REASON FOR EXAMINATION: Cough; PA and lateral chest 06/02/2016; ; Indication: Cough; ; Comparison: PA and lateral chest 11/14/14; ; Findings: Cardiomediastinal silhouette is normal. Lungs are clear bilaterally.; There are mild degenerative changes in thoracic spine. Small amount of; calcification is seen in the region of the left greater tuberosity of humerus; most compatible with calcific tendonitis within the distal supraspinatus tendon.; ; Impression: no acute cardiopulmonary process; ; ; ; ; Signed by; Natasha Ramirez MD 06/03/2016 08:43 A; Outcome: 00:16 Discharge ordered by Provider. mo1 01:18 Discharge Assessment: Patient awake, alert and oriented x 3. No cognitive and/or cz functional deficits noted. Patient verbalized understanding of disposition instructions. patient administered narcotics - no. The following High Risk Discharge criteria are identified: None. Discharged to home ambulatory, with friend. Condition: stable. Discharge instructions given to patient, Instructed on discharge instructions, follow up and referral plans. medication usage, Demonstrated understanding of instructions, medications, Pt was receptive of discharge instructions/ teaching. Prescriptions given X 2. No special radiology studies were completed. Property :Personal belongings accompany Pt. 01:19 Patient left the ED. cz Signatures: Dispatcher [facility] Margo River RN RN kmHarry Boogie RN RN cz Zay Woods, Reg Reg kf3 Shreyas Hernandez gr2 Donaldo Martinez PA PA kenia1 Shonda Heath [facility] Chart Complete MTDD
== END 2016-06-03 01:19 | disposition home or self-care (01) ==
LOC: M ED 22:10
DX: J20.9 Acute bronchitis, unspecified (principal); E11.9 Type 2 diabetes mellitus without complications; I10 Essential (primary) hypertension; E78.00 Pure hypercholesterolemia, unspecified; K21.9 Gastro-esophageal reflux disease without esophagitis; Z79.899 Other long term (current) drug therapy; Z79.84 Long term (current) use of oral hypoglycemic drugs; Z79.82 Long term (current) use of aspirin; Z88.8 Allergy status to other drugs, medicaments and biological substances

== ENCOUNTER → 2016-10-25 | Outpatient (CLI) | payer OTHER | LOC: M WHC 09:54 | PROVIDERS: ATTEND Nurse Practitioner Family | DX: N92.0 Excessive and frequent menstruation with regular cycle (principal); N85.2 Hypertrophy of uterus ==

== ENCOUNTER → 2016-10-26 | Outpatient (REF) | payer OTHER ==
[2016-10-26 11:43] LABS: MEAN CORPUSCULAR HEMOGLOBIN 25.3 pg (27.0-33.0); MEAN CORPUSCULAR HGB CONC 32.7 g/dl (32.0-36.5); MEAN CORPUSCULAR VOLUME 77.3 fl (80.0-96.0); RED CELL DISTRIBUTION WIDTH 15.2 % (11.5-14.5); WHITE BLOOD COUNT 8.1 K/mm3 (4.0-10.0)
[2016-10-26 12:10] LABS: VITAMIN B12 LEVEL 965 PG/ML
[2016-10-26 12:11] LABS: FOLATE 17.6 NG/ML
[2016-10-26 12:14] LABS: ALBUMIN 3.8 GM/DL (3.2-5.2); ALBUMIN/GLOBULIN RATIO 1.06 (1.00-1.93); ALKALINE PHOSPHATASE 93 U/L (45-117); ALT/SGPT 15 U/L (12-78); ANION GAP 8 MEQ/L (8-16); AST/SGOT 19 U/L (15-37); BILIRUBIN,TOTAL 0.4 MG/DL (0.2-1.0); BLOOD UREA NITROGEN 11 MG/DL (7-18); CALCIUM LEVEL 9.1 MG/DL (8.8-10.2); CARBON DIOXIDE LEVEL 28 MEQ/L (21-32); CHLORIDE LEVEL 102 MEQ/L (98-107); CHOLESTEROL LEVEL 123 MG/DL (<200); CREATININE FOR GFR 0.59 MG/DL (0.55-1.02); GLOMERULAR FILTRATION RATE > 60.0 (>45); GLUCOSE, FASTING 132 MG/DL (80-110); MAGNESIUM LEVEL 1.3 MG/DL (1.8-2.4); POTASSIUM SERUM 3.7 MEQ/L (3.5-5.1); SODIUM LEVEL 138 MEQ/L (136-145); TOTAL PROTEIN 7.4 GM/DL (6.4-8.2); TRIGLYCERIDES LEVEL 109 MG/DL (<150)
== END ==
LOC: M SFHCPLAZ 09:25
PROVIDERS: ATTEND Nurse Practitioner Family
DX: E53.8 Deficiency of other specified B group vitamins (principal); E78.2 Mixed hyperlipidemia; E55.9 Vitamin D deficiency, unspecified

== ENCOUNTER → 2017-04-08 | Outpatient (CLI) | payer MEDICARE, MEDICAID ==
[~2017-04-08] MED LIST changes: -ASPI81TA13 PO; +ASPI81TA24 PO; +HYDR-3363 PO; -HYDR25T PO; +KEFL500C17 PO; -KEFL500C7 PO; -METF1000 PO; +METF10004 PO
[2017-04-08 15:32] LABS: ALBUMIN 3.5 GM/DL (3.2-5.2); ALBUMIN/GLOBULIN RATIO 0.95 (1.00-1.93); ALKALINE PHOSPHATASE 99 U/L (45-117); ALT/SGPT 14 U/L (12-78); ANION GAP 10 MEQ/L (8-16); AST/SGOT 16 U/L (7-37); BILIRUBIN,TOTAL 0.3 MG/DL (0.2-1.0); BLOOD UREA NITROGEN 13 MG/DL (7-18); CALCIUM LEVEL 9.6 MG/DL (8.8-10.2); CARBON DIOXIDE LEVEL 25 MEQ/L (21-32); CHLORIDE LEVEL 104 MEQ/L (98-107); CREATININE FOR GFR 0.68 MG/DL (0.55-1.02); GLOMERULAR FILTRATION RATE > 60.0 (>45); GLUCOSE, FASTING 204 MG/DL (80-110); MAGNESIUM LEVEL 1.7 MG/DL (1.8-2.4); POTASSIUM SERUM 4.6 MEQ/L (3.5-5.1); SODIUM LEVEL 139 MEQ/L (136-145); TOTAL PROTEIN 7.2 GM/DL (6.4-8.2)
== END ==
LOC: M LAB 14:06
PROVIDERS: ATTEND Nurse Practitioner Family
DX: Z11.59 Encounter for screening for other viral diseases (principal); Z11.4 Encounter for screening for human immunodeficiency virus [HIV]; E11.9 Type 2 diabetes mellitus without complications; E83.42 Hypomagnesemia

== ENCOUNTER → 2017-08-02 | Outpatient (CLI) | payer MEDICARE, MEDICAID ==
[2017-08-02 14:20] LABS: BASO # 0.1 10^3/uL (0.0-0.2); BASO % 0.9 % (0.0-1.0); EOS # 0.2 10^3/uL (0.0-0.50); EOS % 2.7 % (0.0-3.0); HEMATOCRIT 32.8 % (36.0-47.0); HEMOGLOBIN 9.7 g/dl (12.0-16.0); IMMATURE GRANULOCYTE % 0.3 % (0-3.0); LYMPH # 1.8 10^3/uL (1.5-4.5); LYMPH % 26.8 % (24.0-44.0); MEAN CORPUSCULAR HGB CONC 29.6 g/dl (32.0-36.5); MEAN CORPUSCULAR VOLUME 71.1 fl (80.0-96.0); MONO # 0.5 10^3/uL (0.0-0.8); MONO % 7.9 % (0.0-5.0); NEUTROPHILS # 4.1 10^3/uL (1.8-7.7); NEUTROPHILS % 61.4 % (36.0-66.0); PLATELET COUNT, AUTOMATED 487 10^3/uL (150-450); RED BLOOD COUNT 4.61 10^6/uL (4.00-5.40); WHITE BLOOD COUNT 6.6 10^3/uL (4.0-10.0)
[2017-08-02 14:38] LABS: ESTIMATED AVERAGE GLUCOSE 169 MG/DL (60-110); HEMOGLOBIN A1c 7.5 %
[2017-08-02 14:46] LABS: ALBUMIN 3.7 GM/DL (3.2-5.2); ALBUMIN/GLOBULIN RATIO 0.95 (1.00-1.93); ALKALINE PHOSPHATASE 109 U/L (45-117); ALT/SGPT 11 U/L (12-78); ANION GAP 8 MEQ/L (8-16); AST/SGOT 17 U/L (7-37); BILIRUBIN,TOTAL 0.3 MG/DL (0.2-1.0); BLOOD UREA NITROGEN 19 MG/DL (7-18); CALCIUM LEVEL 9.5 MG/DL (8.8-10.2); CARBON DIOXIDE LEVEL 26 MEQ/L (21-32); CHLORIDE LEVEL 105 MEQ/L (98-107); CREATININE FOR GFR 0.56 MG/DL (0.55-1.30); GLOMERULAR FILTRATION RATE > 60.0 (>45); GLUCOSE, FASTING 135 MG/DL (70-100); MAGNESIUM LEVEL 1.8 MG/DL (1.8-2.4); POTASSIUM SERUM 4.4 MEQ/L (3.5-5.1); SODIUM LEVEL 139 MEQ/L (136-145); TOTAL PROTEIN 7.6 GM/DL (6.4-8.2)
[2017-08-02 14:55] LABS: TOTAL 25(OH) VITAMIN D 33.6 NG/ML (30.0-100.0); VITAMIN B12 LEVEL 948 PG/ML
[2017-08-02 14:56] LABS: FOLATE 14.5 NG/ML
== END ==
LOC: M LAB 13:45
DX: D50.9 Iron deficiency anemia, unspecified (principal); E11.9 Type 2 diabetes mellitus without complications; E53.8 Deficiency of other specified B group vitamins; E55.9 Vitamin D deficiency, unspecified
CPT/HCPCS: 82746